=== PATIENT | female | born 1940 | race Caucasian/White ===

== ENCOUNTER 2017-05-14 12:19 | Day surgery (SDC) | payer MEDICARE, MEDICAID ==
[2017-05-06 11:21] VITALS: BMI 34.7
[2017-05-14] MEDS ORDERED: Propofol 10 mg/ml Inj (20 ML) ONE (13:04)
[2017-05-14] MEDS ORDERED: Lidocaine 1% Inj (20ml) ONE (13:04)
[2017-05-14] MEDS ORDERED: Etomidate 20 mg/10ml Inj IV ONE (13:05)
[2017-05-14] MEDS ORDERED: Sodium Chloride 0.9% 1,000 ML IV SCH (13:45)
[2017-05-14 14:28] VITALS: BP 131/62; PULSE 65; RESP 14; TEMP 97.5; O2SAT 96
== END 2017-05-14 15:05 | disposition home or self-care (01) ==
LOC: ENDO 12:19
PROVIDERS: ATTEND Internal Medicine Gastroenterology
DX: Z12.11 Encounter for screening for malignant neoplasm of colon (principal); K57.30 Diverticulosis of large intestine without perforation or abscess without bleeding; K64.8 Other hemorrhoids